=== PATIENT | female | born 1975 | race Two or more races ===

== ENCOUNTER 2024-04-10 13:30 | Emergency (ER) | payer OTHER, SELFPAY ==
[2024-04-10 13:34] VITALS: BP 198/104
--- NOTE | 2024-04-10 14:00 | ED.GENMED ---
History of Present Illness
General
Chief Complaint: Back Pain
Source: patient
Time Seen by Provider: 04/10/24 13:49
History of Present Illness
History of Present Illness:
48yoF with a history of prediabetes presenting for evaluation of back pain. Patient woke up this morning around 7am with pain in her right upper back/scapular region. She denies any trauma or inciting incident. She describes the pain as feeling like
something is stuck there. Pain has been constant throughout the day today. Nothing seems to make the pain better or worse. Specifically, the pain is not exertional or pleuritic. Pain is non-radiating and she denies any chest pain, arm pain, or
abdominal pain. Patient decided to check her blood pressure at home which was 158/85. She became worried about her heart as her father from an [place] at the age of 61 so she decided to come to the ED for evaluation. Patient denies any cough,
shortness of breath, dizziness, syncope, diaphoresis, nausea, vomiting, paresthesias.
Phy Exam
General Physical Exam
General Presentation: well appearing and no apparent distress
General age: appears stated age
General Skin: warm and dry
General Habitus: normal
General Mental: alert
General Hydration: appears well hydrated
ENT Exam
ENT Exam: normocephalic
Cardiovascular Exam
Cardiovascular Exam: regular rate/rhythm, no edema, no murmur and normal peripheral pulses (2+ radial and DP pulses)
Pulmonary Exam
Pulmonary Exam: lungs clear, no respiratory distress, no rales, chest non tender, no crackles, no rhonchi and no wheezing
[place] Coma Scale
Eye Opening: Spontaneous
Verbal Response: Oriented
Motor Response: Obeys Commands
GCS Total Score: 15
Musculoskeletal Exam
Musculoskeletal Exam: other (No reproducible tenderness or skin changes in thoracic region)
Skin Exam
Skin Exam: normal color and warm/dry
Psychiatric Exam
Psychiatric Exam: normal mood/affect
Course
Orders/Labs/Results
Orders:
Orders
04/10/24 13:31
Electrocardiogram (*1) Urgent
Reason for Study: Chest Pain
EKG- Treatment ONCE
04/10/24 13:59
Cardiac Monitoring- Treatment ONCE
CR Chest - 2 Views Urgent
Comment:
Reason For Exam: R upper back pain
04/10/24 14:02
Complete Blood Count/With Diff Urgent
Comprehensive Metabolic Panel Urgent
Troponin I Urgent
Abnormal Lab Results
04/10/24
14:02
Eosinophils % 6.3 H %
(0-6)
Glucose 177 H mg/dl
(70-99)
Alkaline Phosphatase 37 L U/L
(38-126)
04/10/24 14:02
04/10/24 14:02
Vital Signs
Initial and Last Documented VS:
Initial Vital Signs
Temp Pulse Resp BP Pulse Ox
98.8 F 69 16 198/104 99
04/10/24 13:34 04/10/24 13:34 04/10/24 13:34 04/10/24 13:34 04/10/24 13:34
Last Documented Vital Signs
Temp Pulse Resp BP Pulse Ox
98.8 F 72 22 147/82 100
04/10/24 13:34 04/10/24 15:15 04/10/24 15:15 04/10/24 15:00 04/10/24 15:15
MDM/Problems Addressed
Differential Diagnosis Includes:
48yoF here with atraumatic R upper back pain that she noticed when she woke up this morning. Pain is constant and mild. Nothing makes the pain better or worse. No anterior chest pain or abdominal pain. She is hypertensive on arrival with otherwise
normal vitals. There is no reproducible pain on exam. Lungs CTA and respirations non-labored. Equal pulses bilaterally. Differential diagnosis includes but is not limited to: musculoskeletal, pneumonia, early shingles, less likely ACS, doubt PE
Initial ED plan: Check cardiac labs, EKG, and CXR.
*EKG
Interpreted by ED Provider?: Yes
EKG Intrepretation Date: 04/10/24
Heart Rate: 71
Rate: normal
Rhythm: sinus
[place]: left axis deviation
QRS Pattern: normal QRS
Ischemia: T-wave inversion (leads I and aVL)
*Critical Care Note
Total Time (30-74mins, 75-104mins- exclusive of procedures): Not Applicable
Update Note
Update Note:
EKG shows NSR with T wave inversions in lateral leads. Troponin <0.012. Remainder of labs unremarkable. CXR is clear. BP improved to 147/82 without intervention. Symptoms are very atypical for ACS. She is minimally symptomatic on reassessment. She
now reports that today is the anniversary of her mother's and she believes her symptoms may be related to stress. No indication for hospitalization at this time. She was advised to f/u closely with her PCP. Advised return to the ED with any
new or worsening symptoms. She expressed understanding and is agreeable to plan. She was discharged in stable condition.
ED Attending Note
-
Portions of this chart may have been created with voice recognition software.� Occasional wrong word or��sound alike� substitutions may have occurred due to the inherent limitations of voice recognition software.
Discharge Plan
Departure
Patient Disposition: Home (Routine Discharge)
Date of Disposition: 04/10/24
Time of Disposition: 15:41
Patient with high blood pressure during this ER visit?: Yes
Discharge Problem:
Upper back pain on right side
Instructions: Upper Back Pain (DC)
Prescriptions:
No Action
prednisone 50 MG tablet
50 mg PO DAILY Qty: 5 0RF
albuterol sulfate [Proventil HFA] 90 MCG/PUFF HFA aerosol inhaler
1 puff inhalation Q4HPRN PRN (Reason: shortness of breath) Qty: 1 0RF
benzonatate 100 MG capsule
100 mg PO TIDPRN PRN (Reason: cough) Qty: 10 0RF
Referrals:
Jane Redd DO [Family Provider] -
Activity Restrictions/Additional Instructions:
Please call your family doctor to schedule a follow-up appointment within the next week. Return to the ER immediately with any new or worsening symptoms.
Interventions
Interventions:
*Risk Screen - Suicide Last Done: 04/10/24 15:30
*General Assessment Last Done: 04/10/24 15:30
*Neglect/Abuse Screening Last Done: 04/10/24 15:30
ED- Fall Risk Assessment Last Done: 04/10/24 15:30
*Nursing Disposition Last Done: 04/10/24 16:04
ED-Musculoskeletal Assessment Last Done: 04/10/24 14:10
Discharge Date and Time
Discharge Date/Time: 04/10/24 16:05
Print Language: ESTONIAN
[2024-04-10 14:10] VITALS: BMI 33.2
[2024-04-10 14:15] LABS: % Basophils 0.7 % (0-2); % Eosinophils 6.3 % (0-6); % Immature Granulocytes 0.2 % (0-0.5); % Lymphocytes 40.3 % (20.5-51.1); % Monocytes 5.3 % (1.7-9.3); % Neutrophils 47.2 % (42.2-75.2); Absolute Basophils 0.1 10^3/uL (0-0.2); Absolute Eosinophils 0.5 10^3/uL (0-0.7); Absolute Lymphocytes 3.4 10^3/uL (1.2-3.4); Absolute Monocytes 0.5 10^3/uL (0.1-0.6); Hematocrit 38.7 % (37.0-47.0); Hemoglobin 13.6 g/dL (12.0-16.0); Mean Corp Hgb Conc. 35.1 g/dL (33.0-37.0); Mean Corpuscular Hgb 29.2 pg (27.0-31.0); Mean Platelet Volume 9.6 fL (7.4-10.4); Nucleated Red Blood Cells % 0 %; Platelet Count 280 10^3/uL (130-400); Red Blood Cell Count 4.66 10^6/uL (4.20-5.40); Red Cell Dist. Width 12.5 % (11.5-14.5); White Blood Cell Count 8.5 10^3/uL (4.8-10.8)
[2024-04-10 14:30] LABS: ALT (SGPT) 34 U/L (0-35); AST (SGOT) 34 U/L (14-36); Albumin 4.8 g/dl (3.5-5.0); Alkaline Phosphatase 37 U/L (38-126); Blood Urea Nitrogen 9 mg/dl (7-17); Carbon Dioxide 26 mmol/L (22-30); Chloride 99 mmol/L (98-107); Estimated Creatinine Clearance 116 ml/min; Glucose 177 mg/dl (70-99); Potassium 4.1 mmol/L (3.5-5.1); Sodium 138 mmol/L (135-145); Total Bilirubin 0.2 mg/dl (0.2-1.3); Total Protein 7.6 g/dl (6.3-8.2); eGFR > 60.00
[2024-04-10 14:42] LABS: Troponin I < 0.012 ng/ml
[2024-04-10 15:00] VITALS: BP 147/82
== END 2024-04-10 16:05 | disposition home or self-care (01) ==
LOC: EMR 13:30
PROVIDERS: Physician Assistant; EMERGENCY PHYSICIAN Emergency Medicine; FAMILY PHYSICIAN Family Medicine
DX: M54.6 Pain in thoracic spine (principal); R03.0 Elevated blood-pressure reading, without diagnosis of hypertension
CPT/HCPCS: 99285; 71046; 80053; 84484; 85025; 93005